=== PATIENT | male | born 1945 ===

== ENCOUNTER 2021-12-18 08:45 | Inpatient (IN) | payer OTHER ==
[~2021-12-18] VITALS: Ht 182.9 cm; Wt 83.9 kg
[2021-12-18] MEDS ORDERED: COZAAR25 MG PO (10:39)
[2021-12-25] MEDS ORDERED: DUI500 PO (15:37)
[2021-12-25] MEDS ORDERED: PERCOCET 5-3251 EACH PO (15:37)
[2021-12-25] MEDS ORDERED: ELIQUIS2.5 MG PO (15:37)
== END 2021-12-25 20:14 | disposition home or self-care (01) | DRG 470 ==
LOC: SURH 12-23 05:30 → O/R 12-23 05:30 → SURG 12-23 08:45 → SURH 12-23 11:13 → SURG 12-23 12:30 → SURH 12-25 20:14
PROVIDERS: ADMIT Orthopaedic Surgery; ATTEND Orthopaedic Surgery
PROC: 0SRC0J9 Replacement of Right Knee Joint with Synthetic Substitute, Cemented, Open Approach (ICD-10-PCS; principal; 2021-12-23 12:30)
DX: M17.11 Unilateral primary osteoarthritis, right knee (principal); D62 Acute posthemorrhagic anemia; M22.11 Recurrent subluxation of patella, right knee; I10 Essential (primary) hypertension; Z96.651 Presence of right artificial knee joint; Z20.822 Contact with and (suspected) exposure to COVID-19